=== PATIENT | female | born 1940 | race Asian ===

== ENCOUNTER 2019-05-07 04:30 | Emergency (ER) | payer MEDICARE, MEDICAID, SELFPAY ==
--- NOTE | 2019-05-07 04:32 | ED_ITS ---
HPI - Abdominal Pain General Chief Complaint: Abdominal Pain Stated Complaint: stomach hurts really bad Time Seen by Provider: 05/07/19 04:32 Source: patient and family Mode of arrival: Ambulatory Limitations: language barrier History of Present Illness HPI narrative: 78-year-old female nonsmoker with history of GERD and biliary colic presents with her family and a chief complaint of severe epigastric pain with radiation to her back which woke her from sleep at about 2:00 a.m.. She admits to nausea but no vomiting. She has had no fever or chills. She states her pain is very reminiscent of a recent hospitalization for biliary colic about 1 month ago. Her pain is worse with movement and palpation and improves with rest. MD complaint: abdominal pain Onset (ago): hour(s) Pain Consistency: constant Location: epigastric Severity: moderate Quality: stabbing Radiation: back Exacerbating factors: movement Associated symptoms: nausea Related Data Home Medications Medication Instructions Recorded Confirmed CA PANTOTHENATE/FOLIC ACID/VIT 1 tab PO Q DAY #0 06/08/11 (MULTIVITAMIN) [AMMONIUM CREAM] PRN #0 06/08/11 Multivitamin, Minerals, and 1 tab PO QDAY #0 12/21/11 (#CENTRUM SILVER) OMEGA-3/DHA/EPA/FISH OIL (Fish Oil 300 mg PO QDAY #0 12/21/11 1,000 MG Softgel) atorvastatin 20 mg PO DAILY 05/07/19 05/07/19 cholecalciferol (vitamin D3) 1,000 unit PO DAILY 05/07/19 05/07/19 duloxetine 30 mg PO DAILY 05/07/19 05/07/19 losartan 25 mg PO DAILY 05/07/19 05/07/19 Previous Rx's Medication Instructions Recorded esomeprazole magnesium [Nexium] 40 mg PO QDAY@0600 #30 02/17/12 Sulfacetamide Sodium 2 drp OPHTH Q4H #15 ml 05/08/12 (SULFACETAMIDE SODIUM) BETAMETHASONE/PROPYLENE GLYC 0.05 % TOPICAL BID #15 gm 05/17/12 (Diprolene AF) Fluticasone Propionate (FLONASE) 1 spray INTRANASAL BID #1 inh 01/23/13 POLYVINYL ALCOHOL (#ARTIFICIAL 15 ml OP BID #1 bot 01/23/13 TEARS 30 ML) fexofenadine 180 mg PO Q DAY #30 01/23/13 Diphenhydramine Hydrochloride 25 mg PO Q6HP #30 02/23/13 (BENADRYL) pred[facility]one [facility] Days #0 02/23/13 hydrocodone-acetaminophen 1 tab PO Q4-6H PRN #10 tab 05/07/19 ondansetron 4 mg PO TID-QID PRN #10 tab 05/07/19 Allergies Allergy/AdvReac Type Severity Reaction Status Date / Time No Known Drug Allergies Allergy Verified 05/07/19 05:13 Review of Systems Constitutional Constitutional: Denies chills, Denies fatigue, Denies fever(s), Denies frequent falls, Denies lethargy and Denies weakness Eyes Eyes: Denies change in vision, Denies eye discharge, Denies irritation and Denies loss of vision ENT Ears, Nose, Mouth, and Throat: Denies change in voice, Denies dizziness, Denies neck pain, Denies sore throat and Denies throat swelling Cardiovascular Cardiovascular: Denies chest pain, Denies irregular heart rhythm, Denies lightheadedness, Denies palpitations, Denies dyspnea, Denies dyspnea on exertion and Denies orthopnea Respiratory Respiratory: Denies cough, Denies dyspnea, Denies dyspnea on exertion and Denies wheezing Gastrointestinal Gastrointestinal: Reports abdominal pain, Denies change in bowel habits, Denies diarrhea, Reports nausea and Denies vomiting Genitourinary Genitourinary: Denies hematuria, Denies flank pain, Denies urinary incontinence and Denies urinary urgency Musculoskeletal Musculoskeletal: Denies back pain, Denies muscle weakness, Denies neck pain, Denies numbness and Denies tingling Integumentary/Breasts Skin/Breast: Denies pruritus, Denies erythema, Denies rash and Denies wounds Neurologic Neurologic: Denies behavioral changes, Denies confusion, Denies dizziness, Denies frequent falls, Denies loss of vision, Denies numbness, Denies tingling and Denies weakness Psychiatric Psychiatric: Denies anxiety, Denies behavioral changes, Denies confusion, Denies depression, Denies homicidal ideation and Denies suicidal ideation Endocrine Endocrine: Denies fatigue, Denies flushing and Denies palpitations Hematologic/Lymphatic Hematologic/Lymphatic: Denies easy bruising Allergic/Immunologic Allergic/Immunologic: Denies urticaria, Denies throat swelling and Denies wheezing [facility] Medical History (Updated 05/07/19 @ 05:58 by Flakito Butt DO) CVA (cerebral vascular accident) (Acute) Polycythemia (Acute) TIA (transient ischemic attack) (Acute) Social History Smoking Status: Never smoker Social History Smoking Status: Never smoker Exam Narrative Exam Narrative: GENERAL: [78] year old patient appears stated age. Well- nourished, well-developed patient, in mild distress. HEAD: Atraumatic. Normocephalic. EYES: Pupils equal round and reactive. Extraocular motions intact. No scleral icterus. No injection or drainage. ENT: Nose without bleeding, purulent drainage. Throat without erythema, tonsillar hypertrophy or exudate. Airway patent. NECK: Trachea midline. Non tender CARDIOVASCULAR: Regular rate and rhythm without murmurs, gallops, or rubs. RESPIRATORY: Clear to auscultation. Breath sounds equal bilaterally. No wheezes, rales, or rhonchi. GASTROINTESTINAL: Abdomen soft, severe tenderness in her epigastrium nondistended. EXTREMITIES: No edema or joint tenderness. BACK: Nontender without deformity or crepitance. No flank tenderness. NEURO: AOx3. SKIN: No rash or erythema of visible areas Initial Vital Signs Initial Vital Signs: Vital Signs Temperature 98.1 F 05/07/19 04:41 Pulse Rate 69 05/07/19 04:41 Respiratory Rate 16 05/07/19 04:41 Blood Pressure 168/80 H 05/07/19 04:41 Pulse Oximetry 96 05/07/19 04:41 Course Orders Ordered: ED Orders 05/07/19 04:36 EKG-12 Lead Stat 05/07/19 04:37 US abdomen limited Stat 05/07/19 04:51 Complete Blood Count AUTO DIFF Stat Comprehensive Metabolic Panel Stat Lipase Stat Troponin & CK Cardiac Panel Stat Sodium Chloride (Normal Saline 0.9%) 1,000 mls @ 150 mls/hr IV CONT LESLEY Last Admin: 05/07/19 04:52 Dose: 150 mls/hr Documented by: LREED Discontinued Medications Hydrocodone Bitart/Acetaminophen (Vicodin Prepack) 1 bottle MISC SEEINSTR ONE Stop: 05/07/19 05:51 Hydromorphone HCl (Dilaudid) 0.5 mg IV NOW ONE Stop: 05/07/19 04:37 Last Admin: 05/07/19 04:53 Dose: 0.5 mg Documented by: AWAIS Ondansetron HCl (Zofran) 4 mg IV NOW ONE Stop: 05/07/19 04:37 Last Admin: 05/07/19 04:53 Dose: 4 mg Documented by: AWAIS Ondansetron HCl (Zofran Odt Prepack) 1 bottle MISC SEEINSTR ONE Stop: 05/07/19 05:51 Consultations Consultation #1: Records requested Time: 04:44 Vital Signs Vital signs: Vital Signs - 8 hr 05/07/19 04:41 05/07/19 05:00 05/07/19 05:33 Temperature 98.1 F Pulse Rate 69 66 71 Respiratory Rate 16 18 16 Blood Pressure 168/80 H Blood Pressure [Right Arm] 121/63 121/63 Pulse Oximetry 96 96 97 MDM - Abdominal Pain Lab Data Result diagrams: 05/07/19 04:51 05/07/19 04:51 Labs: Lab Results 05/07/19 05/07/19 Range/Units 04:51 04:51 WBC 5.8 (4.5-11.0) X10^3/uL RBC 5.11 (4.0-5.2) X10^6/uL Hgb 15.6 (12.0-16.0) g/dL Hct 46.1 H (36-46) % MCV 90.2 (80-100) fL MCH 30.5 (26-34) PG MCHC 33.8 (30-36) % RDW 14.4 (11.6-14.8) % Plt Count 216 (150-400) X10^3/uL Neut % (Auto) 52.0 (50-75) % Lymph % (Auto) 34.0 (25-40) % Shelby % (Auto) 11.4 (3-14) % Eos % (Auto) 1.6 L (2-4) % Baso % (Auto) 1.0 (0-2) % Neut # (Auto) 3000 (3657-5562) /uL Lymph # (Auto) 2000 (8042-3285) /uL Shelby # (Auto) 700 (0-900) /uL Eos # (Auto) 100 (0-450) /uL Baso # (Auto) 100 (0-100) /uL Sodium 141 (137-145) mmol/L Potassium 3.4 (3.4-5.1) mmol/L Chloride 102 (98-107) mmol/L Carbon Dioxide 30 (22-32) mmol/L BUN 24 H (7-17) mg/dL Creatinine 0.80 (0.52-1.04) mg/dL Estimated GFR > 60.0 (>60) mL/min BUN/Creatinine Ratio 30.0 H (6-22) Glucose 111 H (80-110) mg/dL Calcium 9.2 (8.4-10.2) mg/dL Total Bilirubin 0.6 (0.2-1.3) mg/dL AST 50 H (14-36) IU/L ALT 61 H (9-52) IU/L Alkaline Phosphatase 123 (38-126) U/L Total Creatine Kinase 68 (30-135) U/L CK-MB (CK-2) TNP CK-MB (CK-2) Rel Index TNP Troponin I < 0.012 (0.01-0.034) ng/mL Total Protein 8.4 H (6.3-8.2) g/dL Albumin 4.5 (3.5-5.0) g/dL Globulin 3.9 (1.7-4.1) g/dL Albumin/Globulin Ratio 1.2 (1.0-2.8) Lipase 29 (23-300) U/L Imaging Data US - abdomen: Radiologist's impression: Cholelithiasis and sludge without wall thickening or pericholecystic inflammatory changes to indicate acute cholecystitis MDM Narrative Medical decision making narrative: Patient with epigastric and right upper quadrant pain with known gallbladder disease has ultrasound that is actually improved over that which was obtained 1 month ago. She has pain on palpation and convincing story. Her labs and imaging a reassuring. She would highly prefer to get back to [place] where her family is and schedule an elective surgery down there if possible. This seems very reasonable given the above- stated. She has been given return precautions and had questions answered to her apparent satisfaction Discharge Plan Departure Patient Disposition: Home Clinical Impression: Biliary colic Instructions: Gallstones Activity Restrictions/Additional Instructions: *You have been diagnosed with [gallbladder disease] *What to do: *Take medications as directed *Follow up with Dr. Sarath Pacheco ([phone]), call for an appointment. Let them know you were seen in the Emergency Department and that we ask that you be seen in follow up. I have also included contact info for our local surgeons if you should want to follow up locally. *Return to ER if you should have any new, worsening or concerning symptoms, such as [increasing pain, yellowing of the skin, fever over 101 F, persistent vomiting or other bothersome symptoms] Prescriptions: New hydrocodone-acetaminophen 5-325 mg tablet 1 tab PO Q4-6H PRN (Reason: pain) Qty: 10 RF: 0 ondansetron 4 mg tablet,disintegrating 4 mg PO TID-QID PRN (Reason: nausea and vomiting) Qty: 10 RF: 0 No Action CA PANTOTHENATE/FOLIC ACID/VIT (MULTIVITAMIN) 1 tab PO Q DAY Qty: 0 RF: 0 [AMMONIUM CREAM] PRN Qty: 0 RF: 0 Multivitamin, Minerals, and (#CENTRUM SILVER) 1 tab PO QDAY Qty: 0 RF: 0 OMEGA-3/DHA/EPA/FISH OIL (Fish Oil 1,000 MG Softgel) 300 mg PO QDAY Qty: 0 RF: 0 esomeprazole magnesium [Nexium] 40 MG capsule,delayed release(DR/EC) 40 mg PO QDAY@0600 Qty: 30 RF: 12 Sulfacetamide Sodium (SULFACETAMIDE SODIUM) 2 drp OPHTH Q4H Qty: 15 RF: 0 BETAMETHASONE/PROPYLENE GLYC (Diprolene AF) 0.05 % Topical BID Qty: 15 RF: 1 fexofenadine 180 MG tablet 180 mg PO Q DAY Qty: 30 RF: 5 Fluticasone Propionate (FLONASE) 1 spray Intranasal BID Qty: 1 RF: 0 POLYVINYL ALCOHOL (#ARTIFICIAL TEARS 30 ML) 15 ml OP BID Qty: 1 RF: 12 prednisone 20 MG tablet 20 mg PO [facility] 3 Days Qty: 0 RF: 0 Diphenhydramine Hydrochloride (BENADRYL) 25 mg PO Q6HP Qty: 30 RF: 0 losartan 25 mg tablet 25 mg PO DAILY RF: 0 duloxetine 30 mg capsule,delayed release(DR/EC) 30 mg PO DAILY RF: 0 cholecalciferol (vitamin D3) 1,000 unit Capsule 1,000 unit PO DAILY RF: 0 atorvastatin 20 mg tablet 20 mg PO DAILY RF: 0 Referrals: Pipe Arellano MD [Physician] -
--- NOTE | 2019-05-07 04:37 | DI.US.S_ITS ---
PROCEDURE: US ABDOMEN LIMITED INDICATIONS: EPIGASTRIC PAIN TECHNIQUE: Real-time focused scanning was performed of the abdomen, with image documentation. COMPARISON: None. FINDINGS: Liver is normal in size and echotexture. Mobile stone noted in the gallbladder lumen. No gallbladder wall thickening gallbladder wall measuring 2.4 mm. No pericholecystic fluid. No sonographic Beaulieu's sign. Delayed tree is nondilated with common bile duct measuring 6.9 mm. Head and body of pancreas are sonographically normal. Tail is obscured by bowel gas. IMPRESSION: Cholelithiasis without sonographic evidence of cholecystitis. If there is continued clinical concern for cholecystitis, nuclear medicine HIDA scan should be considered for further evaluation. Dictated by: Deena Osman MD, PhD on 05/07/2019 at 9:00 Approved by: Deena Osman MD, PhD on 05/07/2019 at 9:01
[2019-05-07 04:41] VITALS: BP 168/80; PULSE 69; RESP 16; TEMP 36.7; O2SAT 96; BMI 24.7
[2019-05-07] MEDS: SODIUM CHLORIDE 0.9% 1,000 ML 150 ML IV (04:52)
[2019-05-07] MEDS: ONDANSETRON 4 MG/2 ML INJ IV (04:53)
[2019-05-07] MEDS: HYDROMORPHONE 0.5 MG INJ IV (04:53)
[2019-05-07 05:00] VITALS: BP 121/63; PULSE 66; RESP 18; O2SAT 96
[2019-05-07 05:01] LABS: Add Manual Diff / Slide Review NO; Basophils Absolute Auto 100 /uL (0-100); Eosinophils Absolute Auto 100 /uL (0-450); Eosinophils Percent Auto 1.6 % (2-4); Hematocrit 46.1 % (36-46); Hemoglobin 15.6 g/dL (12.0-16.0); Lymphocytes Absolute Auto 2000 /uL (1100-4500); Mean Corpuscular HGB Conc 33.8 % (30-36); Mean Corpuscular Hemoglobin 30.5 PG (26-34); Mean Corpuscular Volume 90.2 fL (80-100); Monocytes Absolute Auto 700 /uL (0-900); Monocytes Percent Auto 11.4 % (3-14); Neutrophils Absolute Auto 3000 /uL (1500-7000); Platelet Count 216 X10^3/uL (150-400); Red Blood Cell Count 5.11 X10^6/uL (4.0-5.2); Red Cell Distribution Width 14.4 % (11.6-14.8); White Blood Cell Count 5.8 X10^3/uL (4.5-11.0)
[2019-05-07 05:13] LABS: Alanine Aminotransferase 61 IU/L (9-52); Albumin 4.5 g/dL (3.5-5.0); Albumin Globulin Ratio 1.2 (1.0-2.8); Alkaline Phosphatase 123 U/L (38-126); Aspartate Aminotransferase 50 IU/L (14-36); Bilirubin Total 0.6 mg/dL (0.2-1.3); Blood Urea Nitrogen 24 mg/dL (7-17); Calcium 9.2 mg/dL (8.4-10.2); Carbon Dioxide 30 mmol/L (22-32); Chloride 102 mmol/L (98-107); Creatine Kinase 68 U/L (30-135); Estimated Glomerular Filt Rate > 60.0 mL/min (>60); Globulin 3.9 g/dL (1.7-4.1); Glucose 111 mg/dL (80-110); HEMOLYSIS < 15 (0-50); Lipase 29 U/L (23-300); Potassium 3.4 mmol/L (3.4-5.1); Sodium 141 mmol/L (137-145); Total Protein 8.4 g/dL (6.3-8.2)
[2019-05-07 05:25] LABS: Troponin I < 0.012 ng/mL (0.01-0.034)
[2019-05-07 05:33] VITALS: BP 121/63; PULSE 71; RESP 16; O2SAT 97
--- NOTE | 2019-05-07 05:34 | PC.NURSE ---
Pt's son-in-law present for interpretation. Patient speaks Cantonese and is from [place].
--- NOTE | 2019-05-07 05:47 | PC.NURSE ---
Dr. Butt in to see patient.
[2019-05-07] MEDS: ONDANSETRON 4 MG ODT PREPACK 1 BOTTLE MISC (06:07)
[2019-05-07] MEDS: HYDROCODONE/ACET 5/325 PREPACK 1 BOTTLE MISC (06:07)
[2019-05-07 06:17] VITALS: BP 126/78; PULSE 74; RESP 16; O2SAT 98
--- NOTE | 2019-05-30 00:54 | PC.NURSE ---
NS: started 444, ended 614 150mL/hr : approximatley 225mL NS infused
== END 2019-05-07 06:15 | disposition home or self-care (01) ==
PROVIDERS: Emergency Provider Emergency Medicine
DX: K80.50 Calculus of bile duct without cholangitis or cholecystitis without obstruction (principal); R10.13 Epigastric pain
CPT/HCPCS: 36415; 76705; 80053; 82550; 83690; 84484; 85025; 93005; 96361; 96374; 96375; 99282; 99285; J1170; J2405

== ENCOUNTER 2023-03-10 01:04 | Emergency (ER) | payer MEDICARE, MEDICAID, SELFPAY ==
[2023-03-10 01:23] VITALS: BP 137/64; PULSE 52; RESP 16; TEMP 36.3; O2SAT 94; BMI 25.2
--- NOTE | 2023-03-10 04:18 | ED.BACK ---
HPI - Back Pain/Injury General Chief Complaint: Back Pain/Injury Stated Complaint: BACK PAIN Time Seen by Provider: 03/10/23 04:17 Source: family History of Present Illness HPI Narrative: 82-year-old woman with a history of hypertension, hyperlipidemia, stroke with mild left-sided weakness and left-sided hearing loss approximately 10 years ago, cholecystectomy who was in her usual state of health until after dinner. She went for a walk and was not complaining of the pain or abnormalities. She was sitting on her bed and then when her daughter walked past the room a few minutes later she was on the floor. She was slightly confused too weak to get off the floor and complaining of some mild back pain. Medics were called and they helped her up and helped her into her daughter's car and her daughter brings her to the emergency room for additional evaluation. The patient's primary language is Cantonese in the daughter is acting as interior decorator painting. Neither report any recent fevers, cough, chills. She did not have any chest pain or palpitations. Prior to the falling the patient does not recollect what actually happened. She remembers sitting on the edge of the bed and then waking on the floor. When the daughter asked her why she did not grab onto the bedding to help hold herself up she did not have an answer. At this time she is complaining of left low back and flank pain, she is now also complaining of lower abdominal pain with abdominal distention. Related Data Home Medications Medication Instructions Recorded Confirmed CA PANTOTHENATE/FOLIC ACID/VIT 1 tab PO Q DAY ##0 06/08/11 (MULTIVITAMIN) [AMMONIUM CREAM] PRN ##0 06/08/11 Multivitamin, Minerals, and 1 tab PO QDAY ##0 12/21/11 (#CENTRUM SILVER) OMEGA-3/DHA/EPA/FISH OIL (Fish Oil 300 mg PO QDAY ##0 12/21/11 1,000 MG Softgel) atorvastatin 20 mg tablet 20 mg PO DAILY 05/07/19 05/07/19 cholecalciferol (vitamin D3) 25 1,000 unit PO DAILY 05/07/19 05/07/19 mcg (1,000 unit) capsule duloxetine 30 mg capsule,delayed 30 mg PO DAILY 05/07/19 05/07/19 release losartan 25 mg tablet 25 mg PO DAILY 05/07/19 05/07/19 Previous Rx's Medication Instructions Recorded esomeprazole magnesium 40 mg 40 mg PO QDAY@0600 ##30 02/17/12 capsule,delayed release (Nexium) Sulfacetamide Sodium 2 drp OPHTH Q4H #15 mL 05/08/12 (SULFACETAMIDE SODIUM) BETAMETHASONE/PROPYLENE GLYC 0.05 % topical BID ##15 05/17/12 (Diprolene AF) Fluticasone Propionate (FLONASE) 1 spray intranasal BID #1 inh 01/23/13 POLYVINYL ALCOHOL (#ARTIFICIAL 15 ml OP BID ##1 01/23/13 TEARS 30 ML) fexofenadine 180 mg tablet 180 mg PO Q DAY ##30 01/23/13 Diphenhydramine Hydrochloride 25 mg PO Q6HP ##30 02/23/13 (BENADRYL) prednisone 20 mg tablet 20 mg PO AMCC 3 days ##0 02/23/13 hydrocodone 5 mg-acetaminophen 325 1 tab PO Q4-6H PRN pain #10 tabs 05/07/19 mg tablet ondansetron 4 mg disintegrating 4 mg PO TID-QID PRN nausea and 05/07/19 tablet vomiting #10 tabs Allergies Allergy/AdvReac Type Severity Reaction Status Date / Time No Known Drug Allergies Allergy Verified 05/07/19 05:13 Review of Systems Review of Systems Narrative: Pertinent positive and negative findings as per HPI Patient History Medical History CVA (cerebral vascular accident) Polycythemia TIA (transient ischemic attack) Social History Smoking Status: Never smoker Smoking Status: Never smoker Substance Use Type: does not use Exam Initial Vital Signs Initial Vital Signs: Vital Signs Temperature 97.3 F L 03/10/23 01:23 Pulse Rate 52 L 03/10/23 01:23 Respiratory Rate 16 03/10/23 01:23 Blood Pressure 137/64 03/10/23 01:23 Pulse Oximetry 94 03/10/23 01:23 Oxygen Delivery Method Room Air 03/10/23 01:23 General: Older appearing but in no acute distress. HEENT: Moist mucous membranes, normal sclera with reactive pupils, Neck: No JVD, supple Respiratory: Lungs are clear to auscultation, no wheezing no rales no rhonchi. Full and symmetrical air movement Cardiac: Regular rate and rhythm no murmurs no bruits Abdomen: Soft, mild distention, no abdominal bruits or pulsatile abdominal masses. No tenderness to palpation. Good bowel tones, mild tenderness in the lumbar paraspinous area without point tenderness along the lumbar spine. Skin: Warm and dry, no rashes, no abrasions or contusions Neurologic: Patient notes that she has no hearing in the left ear after a prior stroke and her left side is typically weaker however on gross neurologic testing she is moving all extremities and is symmetrical. Her NIH score is 0 Extremities: No trauma, well perfused Psych: Cooperative, appropriate insight and affect Course Orders Ordered: ED Orders 03/10/23 04:37 CT abdomen pelvis w con Stat Urinalysis and Microscopic Stat 03/10/23 04:38 CT cervical spine wo con Stat CT head/brain wo con Stat XR chest 1V Stat 03/10/23 04:40 Complete Blood Count AUTO DIFF Stat Comprehensive Metabolic Panel Stat Lipase Stat Magnesium Stat NT-proBNP (BNP-Adult 18+) Stat Troponin I Stat EKG-12 Lead Stat Hydromorphone HCl (Hydromorphone 0.5 Mg Inj) 0.5 mg IV Q15MIN PRN PRN Reason: Pain, Last Admin: 03/10/23 04:49 Dose: 0.5 mg Documented By: LORIN Vital Signs Vital signs: Vital Signs - 8 hr 03/10/23 01:23 03/10/23 04:39 03/10/23 04:39 Temperature 97.3 F L Pulse Rate 52 L 63 Respiratory Rate 16 21 Blood Pressure 137/64 162/82 H Pulse Oximetry 94 94 Oxygen Delivery Method Room Air 03/10/23 05:00 03/10/23 05:00 Temperature Pulse Rate 66 Respiratory Rate 18 Blood Pressure 153/77 H Pulse Oximetry 97 Oxygen Delivery Method Room Air MDM - Back Pain/Injury Lab Data 03/10/23 04:40 03/10/23 04:40 Labs: Lab Results 03/10/23 03/10/23 Range/Units 04:40 04:40 WBC 10.6 (4.5-11.0) X10^3/uL RBC 5.18 (4.0-5.2) X10^6/uL Hgb 15.8 (12.0-16.0) g/dL Hct 46.5 H (36-46) % MCV 89.7 (80-100) fL MCH 30.5 (26-34) PG MCHC 34.0 (30-36) % RDW 13.6 (11.6-14.8) % Plt Count 191 (150-400) X10^3/uL Neut % (Auto) 81.9 H (50-75) % Lymph % (Auto) 12.7 L (25-40) % [place] % (Auto) 4.1 (3-14) % Eos % (Auto) 0.3 L (2-4) % Baso % (Auto) 1.0 (0-2) % Neut # (Auto) 8700 H (1720-9360) /uL Lymph # (Auto) 1300 (2762-6838) /uL [place] # (Auto) 400 (0-900) /uL Eos # (Auto) 0 (0-450) /uL Baso # (Auto) 100 (0-100) /uL Sodium 139 (137-145) mmol/L Potassium 3.8 (3.4-5.1) mmol/L Chloride 102 (98-107) mmol/L Carbon Dioxide 29 (22-32) mmol/L BUN 22 H (7-17) mg/dL Creatinine 0.67 (0.52-1.04) mg/dL Estimated GFR > 60 (>60) mL/min BUN/Creatinine Ratio 32.8 H (6-22) Glucose 145 H (80-110) mg/dL Calcium 9.1 (8.4-10.2) mg/dL Magnesium 2.2 (1.6-2.3) mg/dL Total Bilirubin 0.9 (0.2-1.3) mg/dL AST 57 H (14-36) IU/L ALT 73 H (<35) IU/L Alkaline Phosphatase 111 (38-126) U/L Troponin I < 0.012 (0.01-0.034) ng/mL NT-Pro-B Natriuret Pep 37 (<450) pg/mL Total Protein 8.7 H (6.3-8.2) g/dL Albumin 4.5 (3.5-5.0) g/dL Globulin 4.2 H (1.7-4.1) g/dL Albumin/Globulin Ratio 1.1 (1.0-2.8) Lipase 18 L (23-300) U/L MDM Narrative Medical decision making narrative: CC: Presumed syncopal episode with sliding from the bed onto the floor, this is an acute issue uncertain prognosis Complicating co-morbidities: Prior stroke, hypertension, hyperlipidemia Data collected from: patient, daughter Social determinants of health that may influence the patients condition: 1st language is Cantonese Medical records reviewed: Prior ER notes with biliary colic are reviewed Differential considered: Syncope, TIA, stroke, cardiac arrhythmia, acute coronary syndrome, simply slipped with poor recall, infection, AAA with hypotensive episode Exam documented above, pertinent findings include: Mild paraspinous tenderness along the lumbar spine with mild abdominal pain without rebound or guarding mild distention. Neurologic exam is nonfocal Lab Test results independently reviewed as above. Pertinent findings: CBC is unremarkable with white blood cell count at 10.6 no significant anemia, 82% neutrophils Chemistries are unremarkable. AST ALT are slightly elevated but close to their baseline Lipase is low Independently reviewed EKG shows sinus rhythm at a rate of 65. Normal intervals normal axis. Nonspecific ST changes without acute ischemia Imaging studies independently reviewed: CT scan of the head shows no acute findings CT scan of the cervical spine shows no acute findings Chest x-ray shows chronically elevated right hemidiaphragm mild cardiomegaly no acute findings CT of the abdomen and pelvis shows mild compression fracture at T12 age indeterminate. No appendicitis, diverticulitis, aortic abnormalities. For clinical correlation, spine is re-examined and patient does not have any point tenderness over the T12 area Treatments: 0.5 mg of IV Dilaudid Re-evaluations: Patient is feeling significantly better. The abdominal pain has completely resolved, she still have some mild left paraspinous spasm in the lumbar area. Discussion: 82-year-old woman who was sitting on the bed and was then on the floor. Events between the 2 are uncertain. Concern for syncope so complete workup was done. Concern for head trauma so CT scan and cervical spine are scanned as well. Labs are reassuring with no evidence of infection, acute electrolyte abnormalities, acute coronary syndrome. There is no evidence of acute stroke. No signs of sepsis. At this point I suspect she slipped off the bed it is unclear if there truly was a syncopal episode or not. She has strain to her lumbar area but no other significant abnormalities, no need for additional imaging or hospitalization. Results reviewed with patient and her daughter and she is safe for discharge home Discharge Plan Departure Patient Disposition: Home Clinical Impression: Fall Qualifiers: Encounter type: initial encounter Qualified Code(s): W19.XXXA - Unspecified fall, initial encounter Low back strain Qualifiers: Encounter type: initial encounter Qualified Code(s): S39.012A - Strain of muscle, fascia and tendon of lower back, initial encounter Syncope Qualifiers: Syncope type: unspecified Qualified Code(s): R55 - Syncope and collapse Instructions: DI for Low Back Pain Activity Restrictions/Additional Instructions: Thank you for coming in today Your workup today is reassuring. Your lab work is reassuring. I am not seeing any evidence for life-threatening explanations for why you may have slid off the bed. Specifically, there is no sign of stroke, heart attack, significant infection, broken bones Your low back likely was strained with the fall. Using Tylenol, massage, tiger balm and making sure that you are getting up and moving around will help that improve. This pain likely will get worse over the 1st 24 hours and should improve beyond that. You can try ice or heat and use whichever seems to be most effective for pain control. If you find that you are getting worse or develop any new symptoms, please feel free to return to the emergency department for further evaluation. Prescriptions: No Action CA PANTOTHENATE/FOLIC ACID/VIT (MULTIVITAMIN) 1 tab PO Q DAY Qty: 0 [AMMONIUM CREAM] PRN Qty: 0 Multivitamin, Minerals, and (#CENTRUM SILVER) 1 tab PO QDAY Qty: 0 OMEGA-3/DHA/EPA/FISH OIL (Fish Oil 1,000 MG Softgel) 300 mg PO QDAY Qty: 0 esomeprazole magnesium [Nexium] 40 MG capsule,delayed release(DR/EC) 40 mg PO QDAY@0600 Qty: 30 12RF Sulfacetamide Sodium (SULFACETAMIDE SODIUM) 2 drp OPHTH Q4H Qty: 15 0RF BETAMETHASONE/PROPYLENE GLYC (Diprolene AF) 0.05 % Topical BID Qty: 15 1RF fexofenadine 180 MG tablet 180 mg PO Q DAY Qty: 30 5RF Fluticasone Propionate (FLONASE) 1 spray Intranasal BID Qty: 1 0RF POLYVINYL ALCOHOL (#ARTIFICIAL TEARS 30 ML) 15 ml OP BID Qty: 1 12RF prednisone 20 MG tablet 20 mg PO [facility]CC 3 Days Qty: 0 0RF Diphenhydramine Hydrochloride (BENADRYL) 25 mg PO Q6HP Qty: 30 0RF losartan 25 mg tablet 25 mg PO DAILY duloxetine 30 mg capsule,delayed release(DR/EC) 30 mg PO DAILY cholecalciferol (vitamin D3) 1,000 unit Capsule 1,000 unit PO DAILY atorvastatin 20 mg tablet 20 mg PO DAILY hydrocodone-acetaminophen 5-325 mg tablet 1 tab PO Q4-6H PRN (Reason: pain) Qty: 10 0RF ondansetron 4 mg tablet,disintegrating 4 mg PO TID-QID PRN (Reason: nausea and vomiting) Qty: 10 0RF Stand Alone Forms: Patient Portal/API
--- NOTE | 2023-03-10 04:37 | DI.CT.S_ITS ---
PROCEDURE: CT ABDOMEN PELVIS W CON INDICATIONS: Fell off bed, abdominal pain distention, paraspinous tendern TECHNIQUE: After the administration of oral and IV contrast, axial sections were acquired from the lung bases to the pubic symphysis. Coronal and sagittal reformats were performed. For radiation dose reduction, the following was used: automated exposure control, adjustment of mA and/or kV according to patient size. COMPARISON: None. FINDINGS: Image quality: Excellent. Lung bases: Bibasilar atelectasis. Small hiatal hernia. Heart: Mild cardiomegaly. ABDOMEN: Liver: Moderate hepatic steatosis. Gallbladder: Surgically removed. Biliary ducts: Unremarkable. Pancreas: Unremarkable. Spleen: Unremarkable. Adrenal Glands: Unremarkable. Kidneys and Ureters: Normal size and symmetrical enhancement. There are multiple simple appearing cysts in kidneys. Stomach and Bowel: Stomach, small bowel loops, and colon are normal in caliber. Diverticulosis without diverticulitis. Peritoneum: No abnormal intraperitoneal fluid. No free air. Ventral Wall: No hernia. Abdominal Nodes: No retroperitoneal or mesenteric adenopathy by size criteria. Vessels: Aorta and inferior vena cava are normal in size. PELVIS: Pelvic Organs: Unremarkable. Bladder: Unremarkable. Pelvic Nodes: No enlarged lymph nodes. Miscellaneous: No inguinal hernias are seen. Bones: Mild compression fracture of T12 of indeterminate chronicity. Degenerative disc and facet disease in lumbar spine. IMPRESSION: 1. Mild compression fracture of T12 of indeterminate chronicity. 2. No traumatic visceral injuries in abdomen or pelvis. 3. Diverticulosis without diverticulitis. 4. Hepatic steatosis. No significant discrepancy with the shift lab technician radiology preliminary report. Dictated by: Kev Michaels M.D. on 03/10/2023 at 8:00 Approved by: Kev Michaels M.D. on 03/10/2023 at 8:03
--- NOTE | 2023-03-10 04:38 | DI.RAD.S_ITS ---
PROCEDURE: XR CHEST 1V INDICATIONS: Syncope TECHNIQUE: One view of the chest was acquired. COMPARISON: None. FINDINGS: Surgical changes and devices: None. Lungs and pleura: Mild pulmonary vascular congestion is noted. Small right lower lobe infiltrate cannot be excluded. No pleural effusions or pneumothorax. Mediastinum: Aortic arch calcifications are seen. Heart size is enlarged. Bones and chest wall: No suspicious bony lesions. Overlying soft tissues appear unremarkable. IMPRESSION: Opacity at right infrahilar region concerning for small right lower lobe infiltrate versus atelectasis. No pleural effusion or pneumothorax. Cardiomegaly and mild congestion. Dictated by: Osbaldo West M.D. on 03/10/2023 at 8:29 Approved by: Osbaldo West M.D. on 03/10/2023 at 8:30
--- NOTE | 2023-03-10 04:38 | DI.CT.S_ITS ---
PROCEDURE: CT HEAD/BRAIN WO CON INDICATIONS: Syncope with fall from bed to the floor TECHNIQUE: Noncontrast 4.5 mm thick angled axial sections acquired from the foramen magnum to the vertex, with coronal and sagittal reformats. For radiation dose reduction, the following was used: automated exposure control, adjustment of mA and/or kV according to patient size. COMPARISON: [facility], MR, BRAIN (IAC) W AND WO CONTRAST, 02/09/2011, 20:45. FINDINGS: Image quality: Excellent. CSF spaces: Basal cisterns are patent. No extra-axial fluid collections. The ventricles are symmetric in size and shape. Brain: Encephalomalacia in the right frontal lobe No intracranial bleeds or masses. There is cerebral volume loss for age, with resultant ventricular and sulcal prominence. There are periventricular and deep white matter chronic small vessel ischemic changes. There is intracranial internal carotid artery atherosclerosis. Skull and face: Calvarium and visualized facial bones appear intact, without suspicious lesions. Sinuses: Visualized sinuses and mastoids are clear. IMPRESSION: 1. No acute intracranial abnormalities. 2. Encephalomalacia in the right frontal lobe, compatible with old infarct. 3. Cerebral volume loss and chronic microvascular ischemic changes. No significant discrepancy with the sld educational aide radiology preliminary report. Dictated by: Kev Michaels M.D. on 03/10/2023 at 7:44 Approved by: Kev Michaels M.D. on 03/10/2023 at 7:47
--- NOTE | 2023-03-10 04:38 | DI.CT.S_ITS ---
PROCEDURE: CT CERVICAL SPINE WO CON INDICATIONS: Fall from bed to floor, likely syncope TECHNIQUE: Noncontrast 3 mm thick sections acquired from the skull base to the T4 level. Sagittal and coronal reformats were then constructed. For radiation dose reduction, the following was used: automated exposure control, adjustment of mA and/or kV according to patient size. COMPARISON: [facility], , C-SPINE WITHOUT CONTRAST, 03/03/2010, 8:28. FINDINGS: Image quality: Excellent. Bones: No fractures or dislocations. Moderate degenerative disc and facet disease. Visualized superior ribs are intact. Soft tissues: Prevertebral soft tissues are normal in thickness. No paravertebral hematomas. No apical pneumothoraces. IMPRESSION: 1. No acute osseous abnormality. 2. Moderate degenerative disc and facet disease. No significant discrepancy with the retail shift leader radiology preliminary report. Dictated by: Kev Michaels M.D. on 03/10/2023 at 7:47 Approved by: Kev Michaels M.D. on 03/10/2023 at 7:48
[2023-03-10 04:39] VITALS: BP 162/82; PULSE 63; RESP 21; O2SAT 94
[2023-03-10] MEDS: HYDROMORPHONE 0.5 MG INJ IV (04:49)
[2023-03-10 04:57] LABS: Add Manual Diff / Slide Review NO; Basophils Absolute Auto 100 /uL (0-100); Eosinophils Absolute Auto 0 /uL (0-450); Eosinophils Percent Auto 0.3 % (2-4); Hematocrit 46.5 % (36-46); Hemoglobin 15.8 g/dL (12.0-16.0); Lymphocytes Absolute Auto 1300 /uL (1100-4500); Lymphocytes Percent Auto 12.7 % (25-40); Mean Corpuscular Hemoglobin 30.5 PG (26-34); Mean Corpuscular Volume 89.7 fL (80-100); Monocytes Absolute Auto 400 /uL (0-900); Monocytes Percent Auto 4.1 % (3-14); Neutrophils Absolute Auto 8700 /uL (1500-7000); Neutrophils Percent Auto 81.9 % (50-75); Platelet Count 191 X10^3/uL (150-400); Red Blood Cell Count 5.18 X10^6/uL (4.0-5.2); Red Cell Distribution Width 13.6 % (11.6-14.8); White Blood Cell Count 10.6 X10^3/uL (4.5-11.0)
[2023-03-10 05:00] VITALS: BP 153/77; PULSE 66; RESP 18; O2SAT 97
[2023-03-10 05:13] LABS: Alanine Aminotransferase 73 IU/L (<35); Albumin 4.5 g/dL (3.5-5.0); Albumin Globulin Ratio 1.1 (1.0-2.8); Alkaline Phosphatase 111 U/L (38-126); Aspartate Aminotransferase 57 IU/L (14-36); BUN Creatinine Ratio 32.8 (6-22); Bilirubin Total 0.9 mg/dL (0.2-1.3); Blood Urea Nitrogen 22 mg/dL (7-17); Calcium 9.1 mg/dL (8.4-10.2); Carbon Dioxide 29 mmol/L (22-32); Chloride 102 mmol/L (98-107); Estimated Glomerular Filt Rate > 60 mL/min (>60); Globulin 4.2 g/dL (1.7-4.1); Glucose 145 mg/dL (80-110); HEMOLYSIS < 15 (0-50); Lipase 18 U/L (23-300); Magnesium 2.2 mg/dL (1.6-2.3); Potassium 3.8 mmol/L (3.4-5.1); Sodium 139 mmol/L (137-145); Total Protein 8.7 g/dL (6.3-8.2)
[2023-03-10 05:25] LABS: NT-proBNP (BNP-Adult 18+) 37 pg/mL (<450); Troponin I < 0.012 ng/mL (0.01-0.034)
[2023-03-10 07:47] VITALS: BP 161/73; PULSE 62; RESP 17; O2SAT 97
== END 2023-03-10 07:50 | disposition home or self-care (01) ==
PROVIDERS: Emergency Provider Emergency Medicine
DX: S39.012A Strain of muscle, fascia and tendon of lower back, initial encounter (principal); R55 Syncope and collapse; R10.30 Lower abdominal pain, unspecified; R79.89 Other specified abnormal findings of blood chemistry; W19.XXXA Unspecified fall, initial encounter
CPT/HCPCS: 36415; 70450; 71045; 72125; 74177; 80053; 83690; 83735; 83880; 84484; 85025; 93005; 93010; 96374; 99284; J1170; Q9967

== ENCOUNTER 2023-03-13 01:26 | Emergency (ER) | payer MEDICARE, MEDICAID, SELFPAY ==
--- NOTE | 2023-03-13 01:52 | ED_ITS ---
HPI - General Adult <Flakito Butt DO - Last Filed: 03/13/23 17:44> General Chief complaint: Back Pain/Injury Stated complaint: abd/back pain x4 hours Time Seen by Provider: 03/13/23 01:33 History of Present Illness HPI narrative: 82-year-old female with history of prior stroke with left-sided weakness and left-sided hearing loss, hypertension, hyperlipidemia presents with her daughter for evaluation of ongoing back pain. She had been seen and evaluated a few days ago after sliding out of bed in injuring her back. She had a very thorough and appropriate evaluation would advanced imaging including a CT of the abdomen and pelvis with IV contrast. There were no significant findings but perhaps a T12 compression fracture of unknown chronicity. She was encouraged to take various [id number] medications including Tylenol, Motrin, tiger balm etc.. She presents today because her back continues to hurt but now she is having generalized crampy abdominal pain that at times is made worse when she moves and improves with rest but other times has colicky type nature to it. She is had no bowel movement since Tuesday which is not normal for her. She denies any trouble emptying her bladder. He denies any numbness, tingling or weakness of her lower extremities. Related Data Home Medications Medication Instructions Recorded Confirmed CA PANTOTHENATE/FOLIC ACID/VIT 1 tab PO Q DAY ##0 06/08/11 (MULTIVITAMIN) [AMMONIUM CREAM] PRN ##0 06/08/11 Multivitamin, Minerals, and 1 tab PO QDAY ##0 12/21/11 (#CENTRUM SILVER) OMEGA-3/DHA/EPA/FISH OIL (Fish Oil 300 mg PO QDAY ##0 12/21/11 1,000 MG Softgel) atorvastatin 20 mg tablet 20 mg PO DAILY 05/07/19 05/07/19 cholecalciferol (vitamin D3) 25 1,000 unit PO DAILY 05/07/19 05/07/19 mcg (1,000 unit) capsule duloxetine 30 mg capsule,delayed 30 mg PO DAILY 05/07/19 05/07/19 release losartan 25 mg tablet 25 mg PO DAILY 05/07/19 05/07/19 Previous Rx's Medication Instructions Recorded esomeprazole magnesium 40 mg 40 mg PO QDAY@0600 ##30 02/17/12 capsule,delayed release (Nexium) Sulfacetamide Sodium 2 drp OPHTH Q4H #15 mL 05/08/12 (SULFACETAMIDE SODIUM) BETAMETHASONE/PROPYLENE GLYC 0.05 % topical BID ##15 05/17/12 (Diprolene AF) Fluticasone Propionate (FLONASE) 1 spray intranasal BID #1 inh 01/23/13 POLYVINYL ALCOHOL (#ARTIFICIAL 15 ml OP BID ##1 01/23/13 TEARS 30 ML) fexofenadine 180 mg tablet 180 mg PO Q DAY ##30 01/23/13 Diphenhydramine Hydrochloride 25 mg PO Q6HP ##30 02/23/13 (BENADRYL) prednisone 20 mg tablet 20 mg PO [facility] 3 days ##0 02/23/13 hydrocodone 5 mg-acetaminophen 325 1 tab PO Q4-6H PRN pain #10 tabs 05/07/19 mg tablet ondansetron 4 mg disintegrating 4 mg PO TID-QID PRN nausea and 05/07/19 tablet vomiting #10 tabs hydrocodone 5 mg-acetaminophen 325 1 tab PO Q4-6H PRN pain #10 tabs 03/13/23 mg tablet Allergies Allergy/AdvReac Type Severity Reaction Status Date / Time No Known Drug Allergies Allergy Verified 05/07/19 05:13 Review of Systems <Flakito Butt DO - Last Filed: 03/13/23 17:44> Review of Systems Narrative: GENERAL: Denies chills, fatigue, malaise, fever, sweats. HEENT: Denies sinus pain, ear pain, sore throat, difficulty swallowing, dizziness. RESPIRATORY: Denies dyspnea, cough, wheezing, hemoptysis, sputum. CARDIOVASCULAR: Denies chest pain, palpitations, orthopnea, edema, GASTROINTESTINAL: see HPI : Denies dysuria, frequency, incontinence, hematuria, urinary retention. MUSCULOSKELETAL:see HPI SKIN: Denies rash, skin lesions, or other NEUROLOGIC: Denies weakness, headache, numbness, change in speech, confusion, seizures, incoordination. PSYCHIATRIC: No concerning psychosocial issues. 12 point review of systems is negative except for those stated above Patient History <Flakito Butt DO - Last Filed: 03/13/23 17:44> Medical History CVA (cerebral vascular accident) Polycythemia TIA (transient ischemic attack) Social History Smoking Status: Never smoker Smoking Status: Never smoker Substance Use Type: does not use Exam <DO Deanna Ramesh Last Filed: 03/13/23 17:44> Narrative Exam Narrative: GENERAL: [82] year old patient appears stated age. Well-developed patient, in mild distress. HEAD: Atraumatic. Normocephalic. EYES: Pupils equal round and reactive. Extraocular motions intact. No scleral icterus. No injection or drainage. ENT: Nose without bleeding, purulent drainage. Throat without erythema, tonsillar hypertrophy or exudate. Airway patent. NECK: Trachea midline. Non tender CARDIOVASCULAR: Regular rate and rhythm without murmurs, gallops, or rubs. RESPIRATORY: Clear to auscultation. Breath sounds equal bilaterally. No wheezes, rales, or rhonchi. GASTROINTESTINAL: Abdomen soft, minimal generalized tenderness, bowel sounds present though decreased EXTREMITIES: No edema or joint tenderness. BACK: Tender to palpation in midline from lower thoracic to lumbar, also palpable spasming in the paraspinal musculature right greater than left, no edema or crepitance, no discoloration, erythema or warmth. NEURO: AOx3. SKIN: No rash or erythema of visible areas Initial Vital Signs Initial Vital Signs: Vital Signs Temperature 98.6 F 03/13/23 02:12 Pulse Rate 62 03/13/23 02:12 Respiratory Rate 18 03/13/23 02:12 Blood Pressure 191/90 H 03/13/23 02:12 Pulse Oximetry 94 03/13/23 02:12 Oxygen Delivery Method Room Air 03/13/23 02:12 <DO Deanna Echavarria Last Filed: 03/13/23 07:56> Initial Vital Signs Initial Vital Signs: Vital Signs Temperature 98.6 F 03/13/23 02:12 Pulse Rate 62 03/13/23 02:12 Respiratory Rate 18 03/13/23 02:12 Blood Pressure 191/90 H 03/13/23 02:12 Pulse Oximetry 94 03/13/23 02:12 Oxygen Delivery Method Room Air 03/13/23 02:12 Course <DO Deanna Ramesh Last Filed: 03/13/23 17:44> Orders Ordered: Discontinued Medications Acetaminophen (Acetaminophen 325 Mg Tablet) 975 mg PO NOW ONE Stop: 03/13/23 04:54 Last Admin: 03/13/23 05:04 Dose: 975 mg Documented By: CARL Cyclobenzaprine HCl (Cyclobenzaprine 10 Mg Prepack) 1 bottle MISC SEEINSTR ONE Stop: 03/13/23 04:54 Last Admin: 03/13/23 05:04 Dose: 1 bottle Documented By: CARL Vital Signs Vital signs: Vital Signs - 8 hr 03/13/23 02:12 Temperature 98.6 F Pulse Rate 62 Respiratory Rate 18 Blood Pressure 191/90 H Pulse Oximetry 94 Oxygen Delivery Method Room Air <Amadeo Fraga DO - Last Filed: 03/13/23 07:56> Orders Ordered: Discontinued Medications Acetaminophen (Acetaminophen 325 Mg Tablet) 975 mg PO NOW ONE Stop: 03/13/23 04:54 Last Admin: 03/13/23 05:04 Dose: 975 mg Documented By: CARL Cyclobenzaprine HCl (Cyclobenzaprine 10 Mg Prepack) 1 bottle MISC SEEINSTR ONE Stop: 03/13/23 04:54 Last Admin: 03/13/23 05:04 Dose: 1 bottle Documented By: CARL Vital Signs Vital signs: Vital Signs - 8 hr 03/13/23 02:12 Temperature 98.6 F Pulse Rate 62 Respiratory Rate 18 Blood Pressure 191/90 H Pulse Oximetry 94 Oxygen Delivery Method Room Air Medical Decision Making <DO Deanna Ramesh Last Filed: 03/13/23 17:44> Lab Data 03/13/23 04:30 03/13/23 04:30 Labs: Lab Results 03/13/23 03/13/23 Range/Units 04:30 04:30 WBC 9.8 (4.5-11.0) X10^3/uL RBC 5.37 H (4.0-5.2) X10^6/uL Hgb 16.6 H (12.0-16.0) g/dL Hct 48.0 H (36-46) % MCV 89.4 (80-100) fL MCH 31.0 (26-34) PG MCHC 34.6 (30-36) % RDW 13.4 (11.6-14.8) % Plt Count 178 (150-400) X10^3/uL Neut % (Auto) 70.9 (50-75) % Lymph % (Auto) 20.4 L (25-40) % [place] % (Auto) 7.9 (3-14) % Eos % (Auto) 0.3 L (2-4) % Baso % (Auto) 0.5 (0-2) % Neut # (Auto) 6900 (1102-9873) /uL Lymph # (Auto) 2000 (9036-7908) /uL [place] # (Auto) 800 (0-900) /uL Eos # (Auto) 0 (0-450) /uL Baso # (Auto) 0 (0-100) /uL Sodium 138 (137-145) mmol/L Potassium 3.4 (3.4-5.1) mmol/L Chloride 102 (98-107) mmol/L Carbon Dioxide 28 (22-32) mmol/L BUN 15 (7-17) mg/dL Creatinine 0.46 L (0.52-1.04) mg/dL Estimated GFR > 60 (>60) mL/min BUN/Creatinine Ratio 32.6 H (6-22) Glucose 129 H (80-110) mg/dL Calcium 8.8 (8.4-10.2) mg/dL Magnesium 2.3 (1.6-2.3) mg/dL Total Bilirubin 1.1 (0.2-1.3) mg/dL AST 38 H (14-36) IU/L ALT 45 H (<35) IU/L Alkaline Phosphatase 104 (38-126) U/L Total Protein 8.4 H (6.3-8.2) g/dL Albumin 4.4 (3.5-5.0) g/dL Globulin 4.0 (1.7-4.1) g/dL Albumin/Globulin Ratio 1.1 (1.0-2.8) Lipase 15 L (23-300) U/L MDM Narrative Medical decision making narrative: CC: 82-year-old female with persistent back pain and the development of abdominal pain Complicating co-morbidities: Age, prior stroke, hypertension, hyperlipidemia Data collected from: Patient Medical records reviewed: Prior notes reviewed in our EMR Differential considered, but not limited to: Spinal contusion versus fracture versus spasm versus constipation versus bowel obstruction versus other Exam documented above, pertinent findings include: Midline back pain with some paraspinal spasming palpated, no crepitance, step-offs, no evidence of cauda equina. Slightly distended abdomen mildly tender, bowel sounds present Lab Test results independently reviewed as above. Pertinent findings: Independently reviewed EKG as above Imaging studies independently reviewed: Acute abdominal series with nonspecific bowel gas pattern Scores Used: MIPS Elements: Consultations: Treatments: Re-evaluations: Discussion: Disposition: see below, along with detailed discharge instructions that have been reviewed with patient as well as indications for ED re-evaluation and additional outpatient follow up <Amadeo Fraga, - Last Filed: 03/13/23 07:56> Lab Data Labs: Lab Results 03/13/23 03/13/23 Range/Units 04:30 04:30 WBC 9.8 (4.5-11.0) X10^3/uL RBC 5.37 H (4.0-5.2) X10^6/uL Hgb 16.6 H (12.0-16.0) g/dL Hct 48.0 H (36-46) % MCV 89.4 (80-100) fL MCH 31.0 (26-34) PG MCHC 34.6 (30-36) % RDW 13.4 (11.6-14.8) % Plt Count 178 (150-400) X10^3/uL Neut % (Auto) 70.9 (50-75) % Lymph % (Auto) 20.4 L (25-40) % [place] % (Auto) 7.9 (3-14) % Eos % (Auto) 0.3 L (2-4) % Baso % (Auto) 0.5 (0-2) % Neut # (Auto) 6900 (5464-0475) /uL Lymph # (Auto) 2000 (2205-2182) /uL [place] # (Auto) 800 (0-900) /uL Eos # (Auto) 0 (0-450) /uL Baso # (Auto) 0 (0-100) /uL Sodium 138 (137-145) mmol/L Potassium 3.4 (3.4-5.1) mmol/L Chloride 102 (98-107) mmol/L Carbon Dioxide 28 (22-32) mmol/L BUN 15 (7-17) mg/dL Creatinine 0.46 L (0.52-1.04) mg/dL Estimated GFR > 60 (>60) mL/min BUN/Creatinine Ratio 32.6 H (6-22) Glucose 129 H (80-110) mg/dL Calcium 8.8 (8.4-10.2) mg/dL Magnesium 2.3 (1.6-2.3) mg/dL Total Bilirubin 1.1 (0.2-1.3) mg/dL AST 38 H (14-36) IU/L ALT 45 H (<35) IU/L Alkaline Phosphatase 104 (38-126) U/L Total Protein 8.4 H (6.3-8.2) g/dL Albumin 4.4 (3.5-5.0) g/dL Globulin 4.0 (1.7-4.1) g/dL Albumin/Globulin Ratio 1.1 (1.0-2.8) Lipase 15 L (23-300) U/L Imaging Data Acute abdominal series: Radiologist's Impression: Nonspecific bowel gas pattern which could indicate constipation or adynamic ileus. Partial small-bowel obstruction felt less likely CT thoracic spine: Radiologist's Impression: Moderate superior endplate compression fracture of T12. This maybe acute. Clinically correlate. If necessary MRI could be considered to further evaluate CT lumbar spine: Radiologist's Impression: Moderate compression fracture of T12, age indeterminate. MDM Narrative Medical decision making narrative: CC: 82-year-old female with persistent back pain and the development of abdomi nal pain Complicating co-morbidities: Age, prior stroke, hypertension, hyperlipidemia Data collected from: Patient Medical records reviewed: Prior notes reviewed in our EMR Differential considered, but not limited to: Spinal contusion versus fracture versus spasm versus constipation versus bowel obstruction versus other Exam documented above, pertinent findings include: Midline back pain with some paraspinal spasming palpated, no crepitance, step-offs, no evidence of cauda equina. Slightly distended abdomen mildly tender, bowel sounds present Lab Test results independently reviewed as above. Pertinent findings: Independently reviewed EKG as above Imaging studies independently reviewed: Acute abdominal series with nonspecific bowel gas pattern Scores Used: MIPS Elements: Consultations: Treatments: Re-evaluations: Discussion: Disposition: see below, along with detailed discharge instructions that have been reviewed with patient as well as indications for ED re-evaluation and additional outpatient follow up Dr fraga: Received turned over. We would patient's history and physical and workup up to this point. She is still having some lower back discomfort. Her x-rays show constipation and this is consistent with her presenting history as well. She does have a T12 compression fracture however I am not convinced that this is necessarily new. She is tenderness both in the center of her back and also paraspinal region as well. No indication for admission to the hospital. I discussed with her daughter the importance of a good bowel regimen. Was sent h ome with muscle relaxers and also pain medication. They were given return precautions. They expressed understanding and agreement. Discharge Plan Departure Patient Disposition: Home Clinical Impression: Back pain, T12 compression fracture, Constipation Instructions: DI for Low Back Pain, DI for Constipation, Thoracic Back Pain Activity Restrictions/Additional Instructions: She can continue to take all of her medications as directed. It is also important that she start on a good bowel regimen such as either stool softeners or a laxative in order to help with what appears to be an issue with constipation. She was sent home from the emergency department with some muscle relaxers. I prescription for pain medication was sent to the pharmacy. I do recommend that she stay as active as possible. She can continue with heat and ice and also Tylenol. Contact her primary doctor for follow-up. Prescriptions: New hydrocodone-acetaminophen 5-325 mg tablet 1 tab PO Q4-6H PRN (Reason: pain) Qty: 10 0RF No Action CA PANTOTHENATE/FOLIC ACID/VIT (MULTIVITAMIN) 1 tab PO Q DAY Qty: 0 [AMMONIUM CREAM] PRN Qty: 0 Multivitamin, Minerals, and (#CENTRUM SILVER) 1 tab PO QDAY Qty: 0 OMEGA-3/DHA/EPA/FISH OIL (Fish Oil 1,000 MG Softgel) 300 mg PO QDAY Qty: 0 esomeprazole magnesium [Nexium] 40 MG capsule,delayed release(DR/EC) 40 mg PO QDAY@0600 Qty: 30 12RF Sulfacetamide Sodium (SULFACETAMIDE SODIUM) 2 drp OPHTH Q4H Qty: 15 0RF BETAMETHASONE/PROPYLENE GLYC (Diprolene AF) 0.05 % Topical BID Qty: 15 1RF fexofenadine 180 MG tablet 180 mg PO Q DAY Qty: 30 5RF Fluticasone Propionate (FLONASE) 1 spray Intranasal BID Qty: 1 0RF POLYVINYL ALCOHOL (#ARTIFICIAL TEARS 30 ML) 15 ml OP BID Qty: 1 12RF prednisone 20 MG tablet 20 mg PO [facility]CC 3 Days Qty: 0 0RF Diphenhydramine Hydrochloride (BENADRYL) 25 mg PO Q6HP Qty: 30 0RF losartan 25 mg tablet 25 mg PO DAILY duloxetine 30 mg capsule,delayed release(DR/EC) 30 mg PO DAILY cholecalciferol (vitamin D3) 1,000 unit Capsule 1,000 unit PO DAILY atorvastatin 20 mg tablet 20 mg PO DAILY hydrocodone-acetaminophen 5-325 mg tablet 1 tab PO Q4-6H PRN (Reason: pain) Qty: 10 0RF ondansetron 4 mg tablet,disintegrating 4 mg PO TID-QID PRN (Reason: nausea and vomiting) Qty: 10 0RF Stand Alone Forms: Patient Portal/API
[2023-03-13 02:12] VITALS: BP 191/90; PULSE 62; RESP 18; TEMP 37; O2SAT 94; BMI 24.4
--- NOTE | 2023-03-13 03:36 | DI.RAD.S_ITS ---
PROCEDURE: XR ACUTE ABDOMEN SERIES INDICATIONS: Abdominal pain TECHNIQUE: One view chest and two views of the abdomen were acquired. COMPARISON: None. FINDINGS: Surgical changes and devices: None. Chest: Lungs are clear. Heart size is normal. No pleural effusions. No pneumoperitoneum. Abdomen: Bowel gas pattern is normal. No suspicious calcifications. Visualized solid organ contours appear normal. Bones: No suspicious bony lesions. IMPRESSION: No acute process. Dictated by: Antoine Krishna M.D. on 03/13/2023 at 8:50 Approved by: Antoine Krishna M.D. on 03/13/2023 at 8:51
--- NOTE | 2023-03-13 04:53 | DI.CT.S_ITS ---
PROCEDURE: CT THORACIC SPINE WO CON INDICATIONS: fall with severe midline pain TECHNIQUE: Noncontrast 3 mm thick sections acquired through the region of interest in the thoracic spine. Sagittal and coronal reformats were then constructed. For radiation dose reduction, the following was used: automated exposure control. COMPARISON: [facility], CT, CT LUMBAR SPINE WO CON, 03/13/2023, 5:50. FINDINGS: Image quality: Excellent. Bones: There is normal overall bony alignment. There is mild subacute appearing wedging of the T12 vertebral body. No suspicious sclerotic or lytic bony lesions. Central spinal canal is of normal overall caliber. Soft tissues: No paravertebral masses or hematomas. Visualized posteromedial lungs appear clear. IMPRESSION: 1. Mild subacute T12 compression fracture. 2. Concordant with preliminary interpretation. Dictated by: Antoine Krishna M.D. on 03/13/2023 at 8:51 Approved by: Antoine Krishna M.D. on 03/13/2023 at 8:53
--- NOTE | 2023-03-13 04:53 | DI.CT.S_ITS ---
PROCEDURE: CT LUMBAR SPINE WO CON INDICATIONS: fall with severe pain TECHNIQUE: Noncontrast 3 mm thick sections acquired from the T12 level to the sacrum. Sagittal and coronal reformats were constructed. For radiation dose reduction, the following was used: automated exposure control. COMPARISON: None. FINDINGS: Image quality: Excellent. Bones: There is normal bony alignment. Is mild subacute appearing wedging T12. No suspicious lytic or blastic bony lesions. No pars defects. Soft tissues: No retroperitoneal masses or hematomas. Mild ill-defined soft tissue density adjacent to the T12 vertebral body. Visualized aorta is normal in caliber. IMPRESSION: Mild subacute T12 compression fracture. Dictated by: Antoine Krishna M.D. on 03/13/2023 at 7:56 Approved by: Antoine Krishna M.D. on 03/13/2023 at 7:57
[2023-03-13 05:01] LABS: Add Manual Diff / Slide Review NO; Basophils Absolute Auto 0 /uL (0-100); Basophils Percent Auto 0.5 % (0-2); Eosinophils Absolute Auto 0 /uL (0-450); Eosinophils Percent Auto 0.3 % (2-4); Hemoglobin 16.6 g/dL (12.0-16.0); Lymphocytes Absolute Auto 2000 /uL (1100-4500); Lymphocytes Percent Auto 20.4 % (25-40); Mean Corpuscular HGB Conc 34.6 % (30-36); Mean Corpuscular Volume 89.4 fL (80-100); Monocytes Absolute Auto 800 /uL (0-900); Monocytes Percent Auto 7.9 % (3-14); Neutrophils Absolute Auto 6900 /uL (1500-7000); Neutrophils Percent Auto 70.9 % (50-75); Platelet Count 178 X10^3/uL (150-400); Red Blood Cell Count 5.37 X10^6/uL (4.0-5.2); Red Cell Distribution Width 13.4 % (11.6-14.8); White Blood Cell Count 9.8 X10^3/uL (4.5-11.0)
[2023-03-13] MEDS: CYCLOBENZAPRINE 10 MG PREPACK 1 BOTTLE MISC (05:04)
[2023-03-13] MEDS: ACETAMINOPHEN 325 MG TABLET 975 MG PO (05:04)
[2023-03-13 05:06] LABS: Alanine Aminotransferase 45 IU/L (<35); Albumin 4.4 g/dL (3.5-5.0); Albumin Globulin Ratio 1.1 (1.0-2.8); Alkaline Phosphatase 104 U/L (38-126); Aspartate Aminotransferase 38 IU/L (14-36); BUN Creatinine Ratio 32.6 (6-22); Bilirubin Total 1.1 mg/dL (0.2-1.3); Blood Urea Nitrogen 15 mg/dL (7-17); Calcium 8.8 mg/dL (8.4-10.2); Carbon Dioxide 28 mmol/L (22-32); Chloride 102 mmol/L (98-107); Estimated Glomerular Filt Rate > 60 mL/min (>60); Glucose 129 mg/dL (80-110); HEMOLYSIS 34 (0-50); Lipase 15 U/L (23-300); Magnesium 2.3 mg/dL (1.6-2.3); Potassium 3.4 mmol/L (3.4-5.1); Sodium 138 mmol/L (137-145); Total Protein 8.4 g/dL (6.3-8.2)
[2023-03-13 07:41] VITALS: PULSE 59; O2SAT 96
[2023-03-13 07:47] VITALS: BP 166/75; PULSE 63; O2SAT 94
[2023-03-13 08:00] VITALS: O2SAT 93
== END 2023-03-13 08:04 | disposition home or self-care (01) ==
PROVIDERS: Emergency Medicine; Emergency Provider Emergency Medicine
DX: S22.089A Unspecified fracture of T11-T12 vertebra, initial encounter for closed fracture (principal); R10.9 Unspecified abdominal pain; X58.XXXA Exposure to other specified factors, initial encounter
CPT/HCPCS: 36415; 72128; 72131; 74022; 80053; 83690; 83735; 85025; 99283; 99284